=== PATIENT | female | born 1965 ===

== ENCOUNTER 2023-11-27 10:44 | Outpatient (CLI) | payer OTHER ==
[2023-11-27] MEDS ORDERED: RESTORIL30 M1 PO (13:55)
[2023-11-27] MEDS ORDERED: METFORMIN HCL500 M2 PO (13:56)
[2023-11-27] MEDS ORDERED: FEMARA2.5 MG PO (13:56)
[2023-11-27] MEDS ORDERED: WELLBUTRIN SR150 MG PO (13:56)
== END 2023-11-27 10:53 | disposition home or self-care (01) ==
LOC: RAD 10:44
PROVIDERS: ATTEND Obstetrics & Gynecology Gynecologic Oncology
DX: D64.9 Anemia, unspecified (principal); Z01.818 Encounter for other preprocedural examination; Z20.822 Contact with and (suspected) exposure to COVID-19; I10 Essential (primary) hypertension; N39.0 Urinary tract infection, site not specified; R97.8 Other abnormal tumor markers; C50.919 Malignant neoplasm of unspecified site of unspecified female breast

== ENCOUNTER 2023-11-27 12:30 | Inpatient (IN) | payer OTHER ==
[~2023-11-27] VITALS: Ht 172.7 cm; Wt 86.2 kg
[2023-11-27] MEDS ORDERED: RESTORIL30 M1 PO (13:55)
[2023-11-27] MEDS ORDERED: WELLBUTRIN SR150 MG PO (13:56)
[2023-11-27] MEDS ORDERED: METFORMIN HCL500 M2 PO (13:56)
[2023-11-27] MEDS ORDERED: FEMARA2.5 MG PO (13:56)
[2023-11-27 13:57] VITALS: BP 101/58
[2023-11-27 15:26] LABS: RH POSITIVE
[2023-11-30] MEDS ORDERED: CLINDAMYCIN PHOSPHATE 150 MG/ML (600mg) IV SCH ×2 (05:00→17:00)
[2023-11-30] MEDS ORDERED: POVIDONE-IODINE 118 ML BOTT TOP ONE (10:00)
[2023-11-30] MEDS ORDERED: HEMOSTATIC MATRIX 1 KIT KIT TOP ONE (10:00)
[2023-11-30] MEDS ORDERED: SURGIFLO APPLICATOR 1 EACH APPL TOP ONE (10:00)
[2023-11-30] MEDS ORDERED: MORPHINE SULFATE 4 MG/ML CARTRIDGE IV PRN (10:30)
[2023-11-30] MEDS ORDERED: KETOROLAC TROMETHAMINE 30 MG VIAL IV ONE (10:30)
[2023-11-30] MEDS ORDERED: RINGERS SOLUTION,LACTATED 1,000 ML IV SCH (10:30)
[2023-11-30] MEDS ORDERED: MORPHINE SULFATE 4 MG/ML VIAL IV ONE ×2 (11:15→11:45)
[2023-11-30] MEDS ORDERED: SUGAMMADEX SODIUM 200 MG/2 ML VIAL IV ONE (11:15)
[2023-11-30] MEDS ORDERED: ONDANSETRON HCL 2 MG/ML VIAL IV ONE (11:35)
[2023-11-30] MEDS ORDERED: KETOROLAC TROMETHAMINE 30 MG VIAL IM SCH (12:00)
[2023-11-30] MEDS ORDERED: ACETAMINOPHEN 500 MG GEL..CAP PO SCH (12:00)
[2023-11-30 12:20] LABS: HEMATOCRIT 37.8 % (36.0-45.00); HEMOGLOBIN 13.1 g/dL (12.0-15.00); MEAN CELL VOLUME 90.4 fL (80.00-100.00); MEAN CORPUSCULAR HEMOGLOBIN 31.4 pg (27.00-32.0); MEAN CORPUSCULAR HGB CONC 34.8 g/dl (32.0-36.0); PLATELET COUNT 199 K/uL (150-450); RED BLOOD COUNT 4.18 M/uL (4.00-6.00); RED CELL DISTRIBUTION WIDTH 12.4 % (11.5-14.5)
[2023-11-30] MEDS ORDERED: SIMETHICONE 125 MG CAPSULE PO SCH (13:00)
[2023-11-30 13:04] LABS: ALBUMIN 3.9 gm/dL (3.4-5.0); CALCIUM 8.9 mg/dL (8.5-10.1); CREATININE SERUM 0.66 mg/dL (0.55-1.02); GFR 91.35; PHOSPHOROUS 3.8 mg/dL (2.5-4.9); POTASSIUM 3.6 mEq/L (3.5-5.1)
[2023-11-30] MEDS ORDERED: CLONAZEPAM0.5 MG (15:33)
[2023-11-30] MEDS ORDERED: GABAPENTIN100 M2 (15:34)
[2023-11-30 16:57] VITALS: BP 101/58
[2023-11-30] MEDS ORDERED: METOCLOPRAMIDE HCL 5 MG/ML VIAL IV SCH (17:00)
[2023-11-30] MEDS ORDERED: DEXTROSE 50 % IN WATER 0.5 G/ML DISP.SYRIN IV PRN (21:00)
[2023-11-30] MEDS ORDERED: INSULIN LISPRO 1,000 UNIT/10 ML UNITS SUBCUTANEO PRN (21:00)
[2023-11-30] MEDS ORDERED: DOCUSATE SODIUM 100MG CAP PO SCH (21:00)
[2023-11-30] MEDS ORDERED: GABAPENTIN 300 MG CAPSULE PO SCH (21:00)
[2023-11-30] MEDS ORDERED: FAMOTIDINE/PF 20 MG/2 ML VIAL IV PUSH SCH (21:00)
[2023-12-01 00:07] VITALS: BP 90/60; O2SAT 97
[2023-12-01 01:35] LABS: HEMATOCRIT 33.6 % (36.0-45.00); HEMOGLOBIN 11.4 g/dL (12.0-15.00); MEAN CELL VOLUME 92.6 fL (80.00-100.00); MEAN CORPUSCULAR HEMOGLOBIN 31.4 pg (27.00-32.0); MEAN CORPUSCULAR HGB CONC 33.9 g/dl (32.0-36.0); PLATELET COUNT 186 K/uL (150-450); RED BLOOD COUNT 3.63 M/uL (4.00-6.00); RED CELL DISTRIBUTION WIDTH 12.1 % (11.5-14.5)
[2023-12-01 01:49] LABS: ALBUMIN 3.2 gm/dL (3.4-5.0); CALCIUM 8.8 mg/dL (8.5-10.1); CREATININE SERUM 0.69 mg/dL (0.55-1.02); GFR 86.78; PHOSPHOROUS 5.4 mg/dL (2.5-4.9); POTASSIUM 3.84 mEq/L (3.5-5.1)
[2023-12-01 04:30] VITALS: BP 103/65
[2023-12-01 08:16] VITALS: BP 100/65
[2023-12-01] MEDS ORDERED: ENOXAPARIN SODIUM 40 MG/0.4 ML SYRINGE SUBCUTANEO SCH (09:00)
== END 2023-12-01 13:40 | disposition home or self-care (01) | DRG 741 ==
LOC: OB/GYN 11-30 05:59 → O/R 11-30 05:59 → SURH 11-30 10:00 → OB/GYN 11-30 16:01
PROVIDERS: Obstetrics & Gynecology; ADMIT Obstetrics & Gynecology Gynecologic Oncology; ATTEND Obstetrics & Gynecology Gynecologic Oncology
PROC: 0UT74ZZ Resection of Bilateral Fallopian Tubes, Percutaneous Endoscopic Approach (ICD-10-PCS; 2023-11-30)
PROC: 0UT24ZZ Resection of Bilateral Ovaries, Percutaneous Endoscopic Approach (ICD-10-PCS; 2023-11-30)
PROC: 8E0W4CZ Robotic Assisted Procedure of Trunk Region, Percutaneous Endoscopic Approach (ICD-10-PCS; 2023-11-30)
PROC: 0UT94ZZ Resection of Uterus, Percutaneous Endoscopic Approach (ICD-10-PCS; principal; 2023-11-30 10:00)
DX: D06.7 Carcinoma in situ of other parts of cervix (principal); C54.1 Malignant neoplasm of endometrium; D25.1 Intramural leiomyoma of uterus; Z20.822 Contact with and (suspected) exposure to COVID-19
CPT/HCPCS: 58571; S2900